=== PATIENT | female | born 1995 | race Caucasian/White ===

== ENCOUNTER 2025-01-02 17:30 | Inpatient (IN) | payer OTHER ==
[~2025-01-02] VITALS: Ht 165.1 cm; Wt 67.1 kg
[2025-01-02 19:06] VITALS: BP 111/59
[2025-01-02 19:10] LABS: AMPHETAMINES, URINE NEGATIVE (NEGATIVE); BARBITURATES, URINE NEGATIVE (NEGATIVE); BENZODIAZEPINE, URINE NEGATIVE (NEGATIVE); BUPRENORPHINE, URINE POSITIVE (NEGATIVE); COCAINE, URINE NEGATIVE (NEGATIVE); ECSTASY, URINE NEGATIVE (NEGATIVE); FENTANYL, URINE NEGATIVE (NEGATIVE); OXYCODONE, URINE NEGATIVE (NEGATIVE)
[2025-01-02 19:15] LABS: CANNABINOID, URINE NEGATIVE (NEGATIVE); METHADONE, URINE NEGATIVE (NEGATIVE); OPIATES, URINE NEGATIVE (NEGATIVE); PHENCYCLIDINE, URINE NEGATIVE (NEGATIVE)
[2025-01-02 19:38] LABS: BASOPHILS 0.5 % (0-2); EOSINOPHILS 1.1 % (0-6); HEMATOCRIT 33.5 % (35.0-50.0); HEMOGLOBIN 11.5 g/dL (12.0-18.0); LYMPHOCYTES 16.1 % (24-44); MCHC 34.5 g/dl (30-36); MCV 86.9 fl (81-99); MONOCYTES 9.2 % (0-12); NEUTROPHILS 73.1 % (39-80); PLATELET COUNT 203 K/uL (140-440); RBC 3.85 M/ul (4.3-5.7); RDW 13.4 (10.5-15.0)
--- NOTE | 2025-01-02 19:46 | PR ---
[facility] [address] [place], [place] [address] Signed Progress Notes IP Datetime Report Generated by CPN: 01/02/2025 19:46 PROGRESS NOTES: [id number] Impression: Reassuring Heart Rate Other Impressions: PROM w/ possible partial abruption Procedures: Sterile Speculum Exam Plan: Cervical Ripening Informed Consent Obtain: Induction of Labor; Risks, Benefits and Alternatives Discussed VITAL SIGNS: [id number] Vital Signs: Reviewed; Within Normal Limits EXAM: [id number] Effacement: 0 Station: -3 Contractions: Irritability MEMBRANES: [id number] Amniotic Fluid Color: Bloody Comments: On repeat exam, continued blood-tinged vaginal fluid w/ PROM noted. Recommended induction of labor. Reviewed options including vaginal cytotec, oral cytotec, or oxytocin. Will start with vaginal cytotec and if increased vaginal discharge may need to change to oral cytotec. Pt considering options for pain control in labor. All questions answered to best of my ability and to patients apparent satisfaction. Reviewed plan of care with RN. Will continue home medication regimen FETUS A: [id number] FHR Baseline: 130 Variability: Moderate 6-25bpm Accelerations: 15X15 Decelerations: None FHR Category: Category I Presentation: Vertex Comments on Fetus A: No evidence of metabolic acidosis FETUS B: [id number] Signing Physician: Faheem Carcamo DO Copies: ~ *Electronically Signed* 01/02/251945 FAHEEM CARCAMO (LUIS CARLOS) DO PATIENT NAME: LILIANA MORALES PROGRESS NOTE DATE OF : 96 PHYSICIAN: FAHEEM CARCAMO (JD) DO RPT #: [id number] REPORT IS CONFIDENTIAL AND NOT TO BE RELEASED WITHOUT AUTHORIZATION
[2025-01-02] MEDS ORDERED: miSOPROStoL 25 MCG TAB PV SCH (20:00)
[2025-01-02 20:24] LABS: ABO A; ANTIBODY SCREEN NEGATIVE; IS CROSSMATCH COMPATIBLE; RH POSITIVE
[2025-01-02] MEDS ORDERED: CALCIUM CARBONATE 500 MG CHEW PO PRN (20:30)
[2025-01-02] MEDS ORDERED: OXYTOCIN/0.9 % SODIUM CHLORIDE 30 UNITS/500 ML BAG IV SCH (20:30)
[2025-01-02] MEDS ORDERED: MAGNESIUM HYDROXIDE/AL HYDROX 30 ML CUP PO PRN (20:30)
[2025-01-02] MEDS ORDERED: LACTATED RINGER'S 1,000 ML IV PRN (20:30)
[2025-01-02] MEDS ORDERED: LACTATED RINGER'S 1,000 ML IV SCH (20:30)
[2025-01-02] MEDS ORDERED: buprenorphine HCL 8 MG TAB.SUBL SL SCH (21:00)
[2025-01-02] MEDS ORDERED: hydrOXYzine pamoate 50 MG CAP PO SCH (21:00)
[2025-01-02] MEDS ORDERED: GABAPENTIN 300 MG CAP PO SCH (21:00)
--- NOTE | 2025-01-03 01:44 | PR ---
[facility] [facility] [address] [place], [place] [address] Signed Progress Notes IP Datetime Report Generated by IRINEO: 01/03/2025 01:43 PROGRESS NOTES: [id number] Impression: Reassuring Heart Rate Other Impressions: PROM w/ possible partial abruption Procedures: Sterile Speculum Exam Other Procedures: Bedside evaluation / Strip review Plan: Continue Present Management Informed Consent Obtain: Section Delivery; Induction of Labor; Risks, Benefits and Alternatives Discussed VITAL SIGNS: [id number] Vital Signs: Reviewed; Within Normal Limits EXAM: [id number] Dilatation: 1.0 Effacement: 50 Station: -3 Contractions: Irregular MEMBRANES: [id number] Amniotic Fluid Color: Bloody Comments: Called to pt's room for decelerations. Prlonged declerations noted w/out obvious precipiting factor. Decels resolved with maternal positioning and IV fluid bolus. Now Cat 2 tracing w/ minimal variability. S/P 2 dose vaginal cytotec. Miniminal vaginal bleeding. Reviewed w/ pt. Discussed reassuring FHT at this point and ok to continue attempting trial of induction / vaginal delivery. If additional prolonged decelerations remote from delivery would likely recommend proceeding with primary C/S. Pt understands and agrees. Reviewed admisison Hgb. FETUS A: [id number] FHR Baseline: 130 Variability: Minimal - >Undetectable to <=5bpm Accelerations: 15X15 Decelerations: Prolonged FHR Category: Category II Presentation: Vertex Comments on Fetus A: No evidence of metabolic acidosis FETUS B: [id number] Signing Physician: Faheem Carcamo DO *Electronically Signed* 01/03/25 0143 FAHEEM CARCAMO) DO PATIENT NAME: CARMENBHAVNAROSIE WHITE PROGRESS NOTE DATE OF : 96 PHYSICIAN: FAHEEM CARCAMO (JD) DO RPT #: [id number] REPORT IS CONFIDENTIAL AND NOT TO BE RELEASED WITHOUT AUTHORIZATION
--- NOTE | 2025-01-03 07:39 | PR ---
[facility] [address] [place], [place] [address] Signed Progress Notes IP Datetime Report Generated by IRINEO: 01/03/2025 07:39 PROGRESS NOTES: [id number] Impression: Reassuring Heart Rate Other Impressions: PROM w/ possible partial abruption Procedures: Sterile Speculum Exam Other Procedures: Bedside evaluation / Strip review Plan: Continue Present Management Informed Consent Obtain: Section Delivery; Induction of Labor; Risks, Benefits and Alternatives Discussed VITAL SIGNS: [id number] Vital Signs: Reviewed; Within Normal Limits EXAM: [id number] Dilatation: 1.0 Effacement: 50 Station: -3 Contractions: Irregular w/ runs of tachysystole MEMBRANES: [id number] Amniotic Fluid Color: Bloody Comments: Pt evaluated but sleeping. No significant bleeding overnight. Runs of tachysystole at times but last dose of cytotec _ midnight. FHT reassuring. Reviewed progress and plan of care with pt's partner. Will recheck cerivx. Pt king too frequently for additional prostaglandin or pitocin. Reviewed increased risk of intra-amniotic infection w/ mechanical balloon ripening. All questions answered. FETUS A: [id number] FHR Baseline: 130 Variability: Moderate 6-25bpm Accelerations: 15X15 Decelerations: None FHR Category: Category I Presentation: Vertex Comments on Fetus A: No evidence of metabolic acidosis FETUS B: [id number] Signing Physician: Faheem Carcamo DO *Electronically Signed* 01/03/25 0739 FAHEEM CARCAMO (LUIS CARLOS) DO PATIENT NAME: LILIANA MORALES PROGRESS NOTE DATE OF : 96 PHYSICIAN: FAHEEM CARCAMO DO (JD) RPT #: [id number] REPORT IS CONFIDENTIAL AND NOT TO BE RELEASED WITHOUT AUTHORIZATION
[2025-01-03] MEDS ORDERED: hydrOXYzine pamoate 25 MG CAP PO SCH (09:00)
--- NOTE | 2025-01-03 09:49 | PR ---
[facility] [address] [place], [place] [address] Signed Progress Notes IP Datetime Report Generated by IRINEO: 01/03/2025 09:49 PROGRESS NOTES: [id number] Impression: Reassuring Heart Rate; Premature Rupture of Membranes Other Impressions: PROM w/ possible partial abruption Procedures: Sterile Vag Exam Other Procedures: Bedside evaluation / Strip review Plan: Continue Present Management Informed Consent Obtain: Vaginal Delivery; Section Delivery; Risks, Benefits and Alternatives Discussed VITAL SIGNS: [id number] Vital Signs: Reviewed; Within Normal Limits EXAM: [id number] Dilatation: 1.0 Effacement: 60 Station: -3 Contractions: q 1-3 minutes MEMBRANES: [id number] Amniotic Fluid Color: Bloody Comments: Pt seen and examined. Doing well. Painful regular contractions. On exam, cx still unripe w/ minimal change. Brown blood noted on glove. Reviewed current situation w/ PROM and vaginal bleeding c/w possible partial abruption. heart pattern reassuring and no signs of intraamniotic infection. Jonathan too frequently for pitocin or prostaglandins and mechanical dilation contraindicated. Pt inquires whether C/S at this time would be appropriate as she has considered this. Discussed that pt could request C/S by maternal request, but I recommended continued trial of vaginal delivery given reassuring and maternal status. Would recommend C/S w/ distress, infection, bleeding, or lack of cervical change. Pt understands and agrees. She may consider C/S by maternal request and we reviewed ACOG guidelines and risks/benefits of primary C/S. All questions answered. FETUS A: [id number] FHR Baseline: 130 Variability: Moderate 6-25bpm Accelerations: 15X15 Decelerations: None FHR Category: Category I Presentation: Vertex Comments on Fetus A: No evidence of metabolic acidosis FETUS B: [id number] *Electronically Signed* 01/03/25948 FAHEEM CARCAMO) DO PATIENT NAME: LILIANA MORALES CHRISTOPHER PROGRESS NOTE DATE OF : 96 PHYSICIAN: FAHEEM CARCAMO (JD) DO RPT #: [id number] REPORT IS CONFIDENTIAL AND NOT TO BE RELEASED WITHOUT AUTHORIZATION [facility] [address] [place] [address] Signed Signing Physician: Faheem Carcamo DO Copies: ~ *Electronically Signed* 01/03/2549 FAHEEM CARCAMO) DO PATIENT NAME: CARMENLILIANA PROGRESS NOTE DATE OF : 96 PHYSICIAN: FAHEEM CARCAMO (LUIS CARLOS) DO RPT #: [id number] REPORT IS CONFIDENTIAL AND NOT TO BE RELEASED WITHOUT AUTHORIZATION
--- NOTE | 2025-01-03 12:56 | PR ---
[facility] [address] [place], [place] [address] Signed Progress Notes IP Datetime Report Generated by IRINEO: 01/03/2025 12:56 PROGRESS NOTES: [id number] Impression: Reassuring Heart Rate; Premature Rupture of Membranes Other Impressions: PROM w/ possible partial abruption Procedures: Sterile Vag Exam Other Procedures: Bedside evaluation / Strip review Plan: Continue Present Management Informed Consent Obtain: Vaginal Delivery; Section Delivery; Risks, Benefits and Alternatives Discussed VITAL SIGNS: [id number] Vital Signs: Reviewed; Within Normal Limits EXAM: [id number] Dilatation: 1.0 Effacement: 60 Station: -3 Contractions: q 1 min MEMBRANES: [id number] Amniotic Fluid Color: Bloody ROM Note: clear with brown specks Comments: Pt seen and examined. Doing well. Been sleeping all morning despite frequent contractions. Continues to leak small amount of fluid but no bright red blood. Cx unchanged on exam. Will continue expectant management. All questions answered. FETUS A: [id number] FHR Baseline: 130 Variability: Moderate 6-25bpm Accelerations: 15X15 Decelerations: None FHR Category: Category I Presentation: Vertex Comments on Fetus A: No evidence of metabolic acidosis FETUS B: [id number] Signing Physician: Faheem Carcamo DO Copies: ~ *Electronically Signed* 01/03/25 6983 FAHEEM CARCAMO (LUIS CARLOS) DO PATIENT NAME: LILIANA MORALES PROGRESS NOTE DATE OF : 96 PHYSICIAN: FAHEEM CARCAMO (JD) DO RPT #: [id number] REPORT IS CONFIDENTIAL AND NOT TO BE RELEASED WITHOUT AUTHORIZATION
--- NOTE | 2025-01-03 17:08 | PR ---
[facility] [address] [place], [place] [address] Signed Progress Notes IP Datetime Report Generated by IRINEO: 01/03/2025 17:08 PROGRESS NOTES: [id number] Impression: Reassuring Heart Rate; Premature Rupture of Membranes Other Impressions: PROM w/ possible partial abruption Procedures: Sterile Vag Exam Other Procedures: Bedside evaluation / Strip review Plan: Continue Present Management Informed Consent Obtain: Vaginal Delivery; Section Delivery; Risks, Benefits and Alternatives Discussed VITAL SIGNS: [id number] Vital Signs: Reviewed; Within Normal Limits EXAM: [id number] Dilatation: 1.0 Effacement: 60 Station: -3 Contractions: q 1-2 min MEMBRANES: [id number] Amniotic Fluid Color: Bloody ROM Note: clear with brown specks Comments: Pt seen and examined. No further dilation or effacement, but cervix softer and midposition. No additional leaking or bleeding. Residual forebag noted. Reviewed options. Recommended AROM of residual forebag with continued trial of vaginal delivery. Encouraged by no s/sx of chorio, decreased bleeding, and reassuring FHT. Reviewed risks/benefits of C/S by maternal request. She would like more time to consider. All questions answered. Discussed timing of epidural etc. Pt, partner, pt's parents, and retail customer service representative in attendence. FETUS A: [id number] FHR Baseline: 130 Variability: Minimal - >Undetectable to <=5bpm Accelerations: 15X15 Decelerations: None FHR Category: Category II Presentation: Vertex Comments on Fetus A: No evidence of metabolic acidosis FETUS B: [id number] Signing Physician: Faheem Carcamo DO *Electronically Signed* 01/03/25 1708 FAHEEM CARCAMO) DO PATIENT NAME: LILIANA MORALES CHRISTOPHER PROGRESS NOTE DATE OF : 96 PHYSICIAN: FAHEEM CARCAMO) DO RPT #: [id number] REPORT IS CONFIDENTIAL AND NOT TO BE RELEASED WITHOUT AUTHORIZATION [address] [place], [place] [address] Signed Copies: ~ *Electronically Signed* 01/03/251707 FAHEEM CARCAMO) DO PATIENT NAME: LILIANA MORALES PROGRESS NOTE DATE OF : 96 PHYSICIAN: FAHEEM CARCAMO (JD) DO RPT #: [id number] REPORT IS CONFIDENTIAL AND NOT TO BE RELEASED WITHOUT AUTHORIZATION
[2025-01-03] MEDS ORDERED: ROPIVACAINE 0.2% 200 ML BAG ONE (18:59)
[2025-01-03] MEDS ORDERED: ePHEDrine sulfate 5 MG/ML SYRINGE IV PRN (19:45)
[2025-01-03] MEDS ORDERED: LACTATED RINGER'S 2,000 ML IV ONE (19:45)
[2025-01-03] MEDS ORDERED: LACTATED RINGER'S 500 ML IV PRN (19:45)
[2025-01-03] MEDS ORDERED: ROPIVACAINE 0.2% 200 ML BAG EPIDURAL SCH (19:45)
[2025-01-03] MEDS ORDERED: ePHEDrine KIT FOR FBC IV ONE (19:59)
--- NOTE | 2025-01-03 20:35 | PR ---
[facility] [address] [place], [place] [address] Signed Progress Notes IP Datetime Report Generated by IRINEO: 01/03/2025 20:35 PROGRESS NOTES: [id number] Impression: Normal Progression of Labor; Reassuring Heart Rate; Premature Rupture of Membranes Other Impressions: partial abruption Procedures: Artificial ROM; Intrauterine Pressure Catheter; Scalp Electrode; Sterile Vag Exam Other Procedures: Bedside evaluation / Strip review Plan: Continue Present Management; Anticipate Vaginal Delivery Informed Consent Obtain: Vaginal Delivery; Section Delivery; Risks, Benefits and Alternatives Discussed VITAL SIGNS: [id number] Vital Signs: Reviewed; Within Normal Limits EXAM: [id number] Dilatation: 2.0 Effacement: 60 Station: -3 Contractions: q 2-3 minutes MEMBRANES: [id number] Membranes Status: Ruptured Amniotic Fluid Color: Bloody ROM Note: clear with brown specks Comments: Pt seen and examined. Comfortable w/ epidural. Discussed plan of care and pt desires AROM. AROM performed after vertex noted to be well applied. Large amount of blood tinged amniotic fluid with small clots noted. IUPC and FSE gently placed w/out difficulty. Discussed significant change of cervix w/ more dilation and significantly softer and more anterior. Discussed indications for if needed. Will closely monitor fluid and bleeding. All questions answered. FETUS A: [id number] FHR Baseline: 130 Variability: Moderate 6-25bpm Accelerations: 15X15 Decelerations: None FHR Category: Category I Presentation: Vertex Comments on Fetus A: No evidence of metabolic acidosis FETUS B: [id number] Signing Physician: Faheem Carcamo DO *Electronically Signed* 01/03/252034 FAHEEM CARCAMO) DO PATIENT NAME: LILIANA MORALES CHRISTOPHER PROGRESS NOTE DATE OF : 96 PHYSICIAN: FAHEEM CARCAMO) DO RPT #: [id number] REPORT IS CONFIDENTIAL AND NOT TO BE RELEASED WITHOUT AUTHORIZATION [place] [address] [place] [address] Signed Copies: ~ *Electronically Signed* 01/03/252034 FAHEEM CARCAMO) DO PATIENT NAME: LILIANA MORALES CHRISTOPHER PROGRESS NOTE DATE OF : 96 PHYSICIAN: FAHEEM CARCAMO) DO RPT #: [id number] REPORT IS CONFIDENTIAL AND NOT TO BE RELEASED WITHOUT AUTHORIZATION
--- NOTE | 2025-01-04 01:41 | PR ---
[facility] [address] [place], [place] [address] Signed Progress Notes IP Datetime Report Generated by IRINEO: 01/04/2025 01:41 PROGRESS NOTES: [id number] Impression: Normal Progression of Labor; Reassuring Heart Rate; Premature Rupture of Membranes Other Impressions: Partial abruption Procedures: Artificial ROM; Intrauterine Pressure Catheter; Scalp Electrode; Sterile Vag Exam Other Procedures: Strip Review Plan: Continue Present Management Informed Consent Obtain: Vaginal Delivery; Section Delivery; Risks, Benefits and Alternatives Discussed VITAL SIGNS: [id number] Vital Signs: Reviewed; Within Normal Limits EXAM: [id number] Dilatation: 3.0 Effacement: 60 Station: -3 Contractions: q 3- 4 min; inadequate MEMBRANES: [id number] Membranes Status: Ruptured Amniotic Fluid Color: Bloody ROM Note: clear with brown specks Comments: Pt sleeping. Recent Cx exam per RN showed continued effacement and small clot. FHT and maternal status stable. Minimal blood loss w/ few small clots. Contractions have spaced some. Will recheck in 1 hr and if unchanged will start pitocin per protocol. Will check 6am hemogram and fibrinogen. Reviewed plan of care w/ RN FETUS A: [id number] FHR Baseline: 130 Variability: Moderate 6-25bpm Accelerations: 15X15 Decelerations: None FHR Category: Category I Presentation: Vertex Comments on Fetus A: No evidence of metabolic acidosis FETUS B: [id number] Signing Physician: Faheem Carcamo DO *Electronically Signed* 01/04/25 0141 FAHEEM CARCAMO KARLIE) DO PATIENT NAME: LILIANA MORALES PROGRESS NOTE DATE OF : 96 PHYSICIAN: FAHEEM CARCAMO (JD) DO RPT #: [id number] REPORT IS CONFIDENTIAL AND NOT TO BE RELEASED WITHOUT AUTHORIZATION [facility] [address] [place] [address] Signed Copies: ~ *Electronically Signed* 01/04/25 0141 FAHEEM CARCAMO) DO PATIENT NAME: LILIANA MORALES PROGRESS NOTE DATE OF : 96 PHYSICIAN: FAHEEM CARCAMO (JD) DO RPT #: [id number] REPORT IS CONFIDENTIAL AND NOT TO BE RELEASED WITHOUT AUTHORIZATION
[2025-01-04] MEDS ORDERED: dexmedeTOMIDine HCl 200 MCG/2 ML VIAL ONE (03:32)
[2025-01-04] MEDS ORDERED: LIDOCAINE HCL 2% 5 ML SDV ONE (03:32)
[2025-01-04] MEDS ORDERED: OXYTOCIN/0.9 % SODIUM CHLORIDE 30 UNITS/500 ML BAG IV SCH (05:30)
[2025-01-04] MEDS ORDERED: WITCH HAZEL/GLYCERIN 1 EA PAD TOP PRN (07:15)
[2025-01-04] MEDS ORDERED: ACETAMINOPHEN 500 MG TAB PO PRN (07:15)
[2025-01-04] MEDS ORDERED: MAGNESIUM HYDROXIDE/AL HYDROX 30 ML CUP PO PRN (07:15)
[2025-01-04] MEDS ORDERED: BENZOCAINE 60 ML AEROSOL TOP PRN (07:15)
[2025-01-04] MEDS ORDERED: CALCIUM CARBONATE 500 MG CHEW PO PRN (07:15)
[2025-01-04] MEDS ORDERED: IBUPROFEN 800 MG TAB PO SCH (07:15)
[2025-01-04] MEDS ORDERED: MAGNESIUM HYDROXIDE 30 ML UDC PO PRN (07:15)
[2025-01-04] MEDS ORDERED: OXYCODONE HCL 5 MG TAB PO PRN (07:15)
[2025-01-04] MEDS ORDERED: OXYTOCIN/0.9 % SODIUM CHLORIDE 500 ML IV SCH (07:15)
[2025-01-04] MEDS ORDERED: HYDROCORTISONE ACETATE 25 MG SUPP PR PRN (07:15)
[2025-01-04] MEDS ORDERED: SENNOSIDES/DOCUSATE 1 EA TAB PO SCH (09:00)
[2025-01-04 15:53] LABS: RAPID PLASMA REAGIN (RPR) Non Reactive (Non Reactive)
[2025-01-04] MEDS ORDERED: GABAPENTIN 300 MG CAP PO SCH (21:21)
[2025-01-05 05:53] LABS: HEMATOCRIT 27.2 % (35.0-50.0); HEMOGLOBIN 9.2 g/dL (12.0-18.0); MCH 29.8 (27-36); MCV 87.6 fl (81-99); RBC 3.1 M/ul (4.3-5.7); RDW 13.5 (10.5-15.0)
[2025-01-06] MEDS ORDERED: hydrOXYzine pamoate 25 MG CAP PO SCH (09:00)
== END 2025-01-06 19:00 | disposition home or self-care (01) | DRG 805 ==
LOC: FBCO 17:30 → FBC 17:31
PROVIDERS: ADMIT Obstetrics & Gynecology; ATTEND Obstetrics & Gynecology
PROC: 3E033VJ Introduction of Other Hormone into Peripheral Vein, Percutaneous Approach (ICD-10-PCS; 2025-01-03)
PROC: 3E0DXGC Introduction of Other Therapeutic Substance into Mouth and Pharynx, External Approach (ICD-10-PCS; 2025-01-03)
PROC: 10H07YZ Insertion of Other Device into Products of Conception, Via Natural or Artificial Opening (ICD-10-PCS; 2025-01-03)
PROC: 10E0XZZ Delivery of Products of Conception, External Approach (ICD-10-PCS; principal; 2025-01-04)
PROC: 10907ZC Drainage of Amniotic Fluid, Therapeutic from Products of Conception, Via Natural or Artificial Opening (ICD-10-PCS; 2025-01-04)
PROC: 3E0R3BZ Introduction of Anesthetic Agent into Spinal Canal, Percutaneous Approach (ICD-10-PCS; 2025-01-04)
PROC: 00HU33Z Insertion of Infusion Device into Spinal Canal, Percutaneous Approach (ICD-10-PCS; 2025-01-04)
PROC: 0HQ9XZZ Repair Perineum Skin, External Approach (ICD-10-PCS; 2025-01-04)
DX: O42.12 Full-term premature rupture of membranes, onset of labor more than 24 hours following rupture (principal); O45.93 Premature separation of placenta, unspecified, third trimester; Z37.0 Single live birth; Z3A.37 37 weeks gestation of pregnancy; O76 Abnormality in fetal heart rate and rhythm complicating labor and delivery; O70.0 First degree perineal laceration during delivery; O99.334 Smoking (tobacco) complicating childbirth; F17.290 Nicotine dependence, other tobacco product, uncomplicated
CPT/HCPCS: 01960; 36415; 59025; 76815; 80307; 82803; 85018; 85025; 85027; 85384; 86850; 86900; 86901; 86922; A9270; G0463; J2003; J2795; J7121; Q0177